=== PATIENT | male | born 1965 | race African-American/Black ===

== ENCOUNTER 2017-06-05 05:22 | Emergency (ER) | payer SELFPAY ==
[~2017-06-05] VITALS: Ht 185.4 cm; Wt 95.0 kg
[2017-06-05 05:24] VITALS: BP 144/88; PULSE 54; RESP 16; TEMP 97.9; O2SAT 100
[2017-06-05] MEDS ORDERED: AMLO5TAB2 PO (05:50)
[2017-06-05] MEDS ORDERED: HYDR25TA5 PO (05:50)
[2017-06-05] MEDS ORDERED: MORPHINE SULFATE 2 MG/ML INJ IM ONE (06:00)
[2017-06-05] MEDS ORDERED: ONDANSETRON ODT 4 MG TAB PO ONE (06:00)
--- NOTE | 2017-06-05 06:00 | PD ---
HPI Chief Complaint: Headache Time Seen by Provider: 05:43 Travel History International Travel<30 days: No Contact w/Intl Traveler<30days: No Traveled to known affect area: No History of Present Illness HPI 51-year-old male complains of headache and elevated blood pressure. Patient has history of hypertension and has been taking HCTZ and amlodipine. Patient states that he started having aching headache 2 days ago. Patient states that headache aching headache diffuse over the head. Patient states that he has mild blurry vision with headache. Patient denies any photophobia. Patient states that he has intermittent nausea but no vomiting. Patient denies any neck pain. Patient denies any chest pain or shortness of breath. Patient denies abdominal pain. Patient denies any focal weakness or numbness of extremity. Patient states his blood pressure was 212 / 100 2 days ago. Patient denies any new medication. Patient denies any recent head injury. Patient denies any fever chills. PFSH Past Medical History Hypertension: Yes Tetanus Vaccination: < 5 Years Influenza Vaccination: No Social History Alcohol Use: No Tobacco Use: No Substance Use: No Allergies-Medications (Allergen,Severity, Reaction): Coded Allergies: No Known Allergies (Verified Allergy, Unknown, 06/05/17) Reported Meds & Prescriptions Reported Meds & Active Scripts Active Reported Amlodipine (Amlodipine Besylate) 5 Mg Tab 5 Mg PO DAILY Hydrochlorothiazide 25 Mg Tab 25 Mg PO DAILY Review of Systems General / Constitutional: No: Fever Eyes: No: Visual changes HENT: Positive: Headaches Cardiovascular: No: Chest Pain or Discomfort Respiratory: No: Shortness of Breath Gastrointestinal: No: Abdominal Pain Genitourinary: No: Dysuria Musculoskeletal: No: Pain Skin: No Rash Neurologic: No: Weakness Psychiatric: No: Depression Endocrine: No: Polydipsia Hematologic/Lymphatic: No: Easy Bruising Physical Exam Narrative GENERAL: Well-nourished, well-developed patient. SKIN: Focused skin assessment warm/dry. HEAD: Normocephalic. EYES: No scleral icterus. No injection or drainage. Pupils 2 mm equal reactive. NECK: Supple, trachea midline. No JVD or lymphadenopathy. No meningismus CARDIOVASCULAR: Regular rate and rhythm without murmurs, gallops, or rubs. RESPIRATORY: Breath sounds equal bilaterally. No accessory muscle use. GASTROINTESTINAL: Abdomen soft, non-tender, nondistended. MUSCULOSKELETAL: No cyanosis, or edema. BACK: Nontender without obvious deformity. No CVA tenderness. Neurologic exam normal. Data Data Last Documented VS Vital Signs Date Time Temp Pulse Resp B/P (MAP) Pulse Ox O2 Delivery O2 Flow Rate FiO2 06/05/17 05:47 Room Air 06/05/17 05:24 97.9 54 16 144/88 (106) [address] Brain W/O Iv Contrast(Rout) (06/05/17 05:54) Morphine Inj (Morphine Inj) (06/05/17 06:00) Ondansetron Odt (Zofran Odt) (06/05/17 06:00) [facility] Medical Decision Making Medical Screen Exam Complete: Yes Emergency Medical Condition: Yes Interpretation(s) 6:[address] scan of the brain negative acute pathology. Differential Diagnosis Differential diagnosis including tension headache, cluster headache, migraine headache, uncontrolled hypertension, hypertensive urgency, hypertensive crisis. Narrative Course 51-year-old male with headache and elevated blood pressure. History hypertension. Morphine 2 mg IM. Zofran 4 mg ODT. Diagnosis Primary Impression: Cephalgia Qualified Codes: R51 - Headache Additional Impression: Labile hypertension Patient Instructions: General Instructions Additional Instructions: Fioricet as needed for headache. Continue with blood pressure medications. Follow-up with personal physician. Return if persistent problem or worse. Med/Other Pt SpecificInfo: Prescription(s) given Scripts Acjnspokru-Zzyefwynwsgfz-Wcmztdwb (Fioricet) 50-300-40 Mg Cap 1-2 CAP PO Q6H Y for HEADACHE, #30 CAP 0 Refills Prov: Brayden Turner MD 06/05/17 Disposition: 01 DISCHARGE HOME Condition: Stable Brayden Turner MD Jun 05, 2017 06:00
--- NOTE | 2017-06-05 06:22 | RADRPT ---
EXAM DATE/TIME: 06/05/2017 05:58 [place] COMPARISON: No previous studies available for comparison. INDICATIONS : Cephalgia. RADIATION DOSE: 56.35 CTDIvol (mGy) MEDICAL HISTORY : Hypertension. SURGICAL HISTORY : None. ENCOUNTER: Initial ACUITY: 1 day PAIN SCALE: 5/10 LOCATION: cranial TECHNIQUE: Multiple contiguous axial images were obtained of the head. Using automated exposure control and adj ustment of the mA and/or kV according to patient size, radiation dose was kept as low as reasonably a chievable to obtain optimal diagnostic quality images. DICOM format image data is available electro nically for review and comparison. FINDINGS: CEREBRUM: The ventricles are normal for age. No evidence of midline shift, mass lesion, hemorrhage or acute in farction. No extra-axial fluid collections are seen. POSTERIOR FOSSA: The cerebellum and brainstem are intact. The 4th ventricle is midline. The cerebellopontine angle i s unremarkable. EXTRACRANIAL: The visualized portion of the orbits is intact. SKULL: The calvaria is intact. No evidence of skull fracture. CONCLUSION: No acute disease. Goldy Prieto MD on June 05, 2017 at 6:20 Board Certified Radiologist. This report was verified electronically.
[2017-06-05] MEDS ORDERED: BUTA1CAP PO (06:44)
== END 2017-06-05 07:20 | disposition home or self-care (01) ==
LOC: NEPC 05:22
DX: R51 Headache (principal); I10 Essential (primary) hypertension
CPT/HCPCS: 70450; 96372; 99285; J2270